=== PATIENT | male | born 1995 | race Caucasian/White ===

== ENCOUNTER 2016-12-03 12:46 | Emergency (ER) | payer SELFPAY ==
[~2016-12-03] VITALS: Ht 172.7 cm; Wt 61.2 kg
--- NOTE | 2016-12-03 16:03 | ED EENT ---
History of Present Illness General Chief Complaint: Dental Problems/Pain Stated Complaint: LOWER JAW, LEFT SIDE TOOTH PAIN Nursing Triage Note: R JAW/DENTAL PAIN X3 WEEKS. WAS SEEN IN [place] [facility] AND RECEIVED AMOXICILLIN AND OXYCODONE. Source: patient Exam Limitations: no limitations (NOEMY GOMEZ) History of Present Illness Time seen by provider: 16:03 Initial Comments patient seen, evaluated, and patient care provided by Jama Moore APRN. (NOEMY GOMEZ) Time seen by provider: 16:10 Initial Comments Dental Pain, left lower molars. Severity: moderate Location: dental Prearrival Treatment: prescription meds (Amoxicillin and Oxycodone) Associated Symptoms: denies symptoms (JAMA MOORE) Allergies and Home Medications Allergies Coded Allergies: No Known Drug Allergies (Unverified , 12/03/16) Home Medications Cephalexin 500 Mg Capsule #28 500 MG PO QID Prescribed by: JAMA MOORE on 12/03/16 1628 Review of Systems Constitutional: no symptoms reported see HPI Eyes: No Symptoms Reported See HPI Ears: No Symptoms Reported See HPI Nose: no symptoms reported see HPI Mouth: see HPI pain (left lower jaw) Throat: no symptoms reported see HPI Respiratory: no symptoms reported see HPI Cardiovascular: no symptoms reported see HPI Gastrointestinal: no symptoms reported see HPI Musculoskeletal: no symptoms reported see HPI Skin: no symptoms reported see HPI Neurological: No Symptoms Reported See HPI Hematologic/Lymphatic: No Symptoms Reported See HPI Immunological/Allergic: no symptoms reported see HPI (JAMA MOORE) All Other Systems Reviewed Negative Unless Noted: Yes (JAMA MOORE) Past Okzgwtn-Fdbmia-Bzfcjt Hx Patient Social History Alcohol Use: Regular Use Recreational Drug Use: No Smoking Status: Current Everyday Smoker Type Used: Cigarettes Recent Foreign Travel: No Contact w/Someone Who Travel: No Recent Infectious Disease Expo: No Recent Hopitalizations: No Physical Abuse Screen: No Sexual Abuse: No (NOEMY GOMEZ) Surgeries HX Surgeries: Yes (TUBES IN EARS) (NOEMY GOMEZ) Respiratory Hx Respiratory Disorders: Yes Respiratory Disorders: Asthma (NOEMY GOMEZ) Cardiovascular Hx Cardiac Disorders: No (NOEMY GOMEZ) Neurological Hx Neurological Disorders: No (NOEMY GOMEZ) Genitourinary Hx Genitourinary Disorders: No (NOEMY GOMEZ) Gastrointestinal Hx Gastrointestinal Disorders: No (NOEMY GOMEZ) Musculoskeletal Hx Musculoskeletal Disorders: No (NOEMY GOMEZ) Endocrine Hx Endocrine Disorders: No (NOEMY GOMEZ) Psychosocial Hx Psychiatric Problems: Yes (AUSTISTIC) (NOEMY GOMEZ) Reviewed Nursing Assessment Reviewed/Agree w Nursing PMH: Yes (JAMA MOORE) Physical Exam Vital Signs Vital Sign - Last 12Hours 12/03/16 14:06 Temp 100.0 Pulse 122 Resp 16 B/P 134/88 Pulse Ox 99 (JAMA MOORE) General Appearance: WD/WN no apparent distress Eyes: bilateral eye EOMI, bilateral eye PERRL, bilateral eye normal inspection Ears: bilateral ear TM normal, bilateral ear auricle normal, bilateral ear canal normal Nose: normal inspectionNo active bleeding, No discharge, No sinus tenderness Mouth/Throat: pharynx normal dental tenderness mandibular swelling (left)No pharynx swelling, No pharynx tenderness, No tongue swollen, other (marketed gingivitis, dental caries, closed fracture tooth #17) Neck: non-tender full range of motion supple normal inspectionNo lymphadenopathy (R), lymphadenopathy (L) Cardiovascular: normal peripheral pulses regular rate, rhythm no edema no murmur Respiratory: chest non-tender lungs clear normal breath sounds no respiratory distress no accessory muscle use Neurologic/Psychiatric: no motor/sensory deficits alert normal mood/affect oriented x 3 Skin: normal color warm/dry (JAMA MOORE) Progress/Results/Core Measures Results/Orders My Orders Orders-JAMA MOORE Hydrocodone/Apap 10/325 Tablet (Lortab 1 (12/03/16 16:23) Cephalexin Capsule (Keflex Capsule) (12/03/16 16:23) (JAMA MOORE) Vital Signs/I&O Vital Sign - Last 12Hours 12/03/16 12/03/16 14:06 16:30 Temp 100.0 99.6 Pulse 122 122 Resp 16 16 B/P 134/88 Pulse Ox 99 99 (JAMA MOORE) Blood Pressure Mean: 103 Departure Impression Impression: Primary Impression: Pain, dental Additional Impression: Fractured tooth Qualified Code: S02.5XXA - Fracture of tooth (traumatic), initial encounter for closed fracture Disposition: 01 HOME, SELF-CARE Condition: Stable Departure-Patient Inst. Decision time for Depature: 16:20 (JAMA MOORE) Referrals: NO,LOCAL PHYSICIAN (PCP/Family) Primary Care Physician Patient Instructions: Fractured Tooth (DC), Dental Pain (DC) Add. Discharge Instructions: All discharge instructions reviewed with patient and/or family. Voiced understanding. Warm moist compresses to left cheek. Tylenol 650 mg every 6 hours and Ibuprofen 800 mg every 8 hours. Establish care at [facility], for prescription assistance and referral to dental clinic. Scripts Cephalexin (Keflex)500 Mg [id number] Mg PO QID #28 CAP Ref 0 Prov:JAMA MOORE 12/03/16 Work/School Note: [employer] NOEMY GOMEZ Dec 03, 2016 16:03 JAMA MOORE Dec 03, 2016 16:29
[2016-12-03] MEDS ORDERED: CEPHALEXIN 250 MG (KEFLEX) CAP PO STA (16:23)
[2016-12-03] MEDS ORDERED: HYDROcodone/APAP 10 MG/325 MG (LORTAB) TAB PO STA (16:23)
[2016-12-03] MEDS ORDERED: CEPH-507 PO (16:28)
[2016-12-03 16:30] VITALS: BP 134/88
== END 2016-12-03 16:30 | disposition home or self-care (01) ==
LOC: ER 12:49
DX: S02.5XXA Fracture of tooth (traumatic), initial encounter for closed fracture (principal); K02.9 Dental caries, unspecified; F17.210 Nicotine dependence, cigarettes, uncomplicated; X58.XXXA Exposure to other specified factors, initial encounter; Y99.8 Other external cause status
CPT/HCPCS: 99283

== ENCOUNTER 2017-05-08 12:06 | Emergency (ER) | payer SELFPAY ==
[~2017-05-08] VITALS: Ht 172.7 cm; Wt 65.8 kg
[~2017-05-08 12:06] MED LIST: CEPH-507 PO
--- NOTE | 2017-05-08 12:14 | ED EENT ---
History of Present Illness General Stated Complaint: TOOTH PAIN Source: patient Exam Limitations: no limitations History of Present Illness Time seen by provider: 12:12 Initial Comments To ER with right lower molar pain for 2 days. States he was eating when it broke off. States he cannot see a dentist because no one will allow financial assistance. Timing/Duration: abrupt Severity: moderate Location: mouth Associated Symptoms: denies symptoms Allergies and Home Medications Allergies Coded Allergies: No Known Drug Allergies (Unverified , 12/03/16) Home Medications Cephalexin 500 Mg Capsule, 500 MG PO QID, #28 Ref 0 Prescribed by: JAMA COMER on 12/03/16 1628 Review of Systems Constitutional: see HPI Eyes: No Symptoms Reported Ears: No Symptoms Reported Nose: no symptoms reported Mouth: see HPI Throat: no symptoms reported Respiratory: no symptoms reported Cardiovascular: no symptoms reported Musculoskeletal: no symptoms reported Past Xbnoroo-Octori-Gdoedd Hx Patient Social History Type Used: Cigarettes Recent Foreign Travel: No Contact w/Someone Who Travel: No Recent Hopitalizations: No Surgeries HX Surgeries: Yes (TUBES IN EARS) Respiratory Hx Respiratory Disorders: Yes Respiratory Disorders: Asthma Cardiovascular Hx Cardiac Disorders: No Neurological Hx Neurological Disorders: No Genitourinary Hx Genitourinary Disorders: No Gastrointestinal Hx Gastrointestinal Disorders: No Musculoskeletal Hx Musculoskeletal Disorders: No Endocrine Hx Endocrine Disorders: No Psychosocial Hx Psychiatric Problems: Yes (AUSTISTIC) Physical Exam General Appearance: WD/WN, no apparent distress Eyes: bilateral eye EOMI, bilateral eye PERRL, bilateral eye normal inspection Ears: bilateral ear TM normal, bilateral ear auricle normal, bilateral ear canal normal Mouth/Throat: other (multiple fractured eroded and carious teeth. No buccal or lingual fluctuance to suggest abcess. ) Neck: non-tender, full range of motion, No lymphadenopathy (R), No lymphadenopathy (L) Respiratory: normal breath sounds, no respiratory distress, no accessory muscle use Gastrointestinal: non tender, soft Neurologic/Psychiatric: alert, normal mood/affect, oriented x 3 Skin: normal color Departure Communication Progress Notes I did call [facility] and make an appointment for the patient May 22 at 10 a.m. Impression Impression: Primary Impression: Pain, dental Disposition: 01 HOME, SELF-CARE Condition: Stable Departure-Patient Inst. Decision time for Depature: 12:14 Referrals: NO,LOCAL PHYSICIAN (PCP/Family) Primary Care Physician Patient Instructions: Dental Pain (DC) Add. Discharge Instructions: 1. I have made an appointment for you at the [facility] on and [address] on May 22 at 10 a.m. 2. Medication as directed Scripts Tramadol HCl (Ultram) 50 Mg Tablet 50 MG PO Q6H Y for PAIN-MODERATE TO SEVERE, #10 TAB Do not fill unless amoxicillin is also filled Prov: HARI DIXON APRN 05/08/17 Chlorhexidine Gluconate (Peridex) 473 Ml Mouthwash 30 ML MM BID, #473 ML Prov: HARI DIXON APRN 05/08/17 Amoxicillin (Amoxicillin) 500 Mg Capsule 500 MG PO TID, #21 CAP Prov: HARI DIXON APRN 05/08/17 Images Mouth/Nose 1 - Caries, Fracture Tooth, Tenderness HARI DIXON APRN May 08, 2017 12:14
[2017-05-08] MEDS ORDERED: CHLO473M4 MM (12:19)
[2017-05-08] MEDS ORDERED: AMOX500C2 PO (12:19)
[2017-05-08] MEDS ORDERED: TRAM-42 PO (12:19)
[2017-05-08 12:28] VITALS: BP 135/77
== END 2017-05-08 12:27 | disposition home or self-care (01) ==
LOC: EDUNIT# 12:06 → ER 12:08
DX: K08.89 Other specified disorders of teeth and supporting structures (principal)
CPT/HCPCS: 99282

== ENCOUNTER 2017-07-04 11:59 | Emergency (ER) | payer OTHER ==
[~2017-07-04] VITALS: Ht 170.2 cm; Wt 65.8 kg
[~2017-07-04 11:59] MED LIST changes: +AMOX500C2 PO; +CHLO473M4 MM; +TRAM-42 PO
[2017-07-04] MEDS ORDERED: ONDA4TAB8 SL (12:35)
[2017-07-04] MEDS ORDERED: AMOX500T2 PO (12:35)
--- NOTE | 2017-07-04 12:40 | ED GI ---
General Chief Complaint: Abdominal/GI Problems Stated Complaint: VOMITING/NAUSEA Nursing Triage Note: PT STATES HAS VOMITED X3 THIS AM, HAS EATEN EGGS AND TOAST AND HAS BEEN ABLE TO KEEP DOWN, HAS DISCOMFORT FROM VOMITING Sepsis Screen: No Definite Risk Source of Information: Patient Exam Limitations: No Limitations History of Present Illness Time Seen By Provider: 12:20 Initial Comments This 21-year-old young man presents to the emergency room with complaints of vomiting 3 today. Symptoms started at 07:00. He denies fever, diarrhea, constipation, or urinary changes. He has abdominal pain only after vomiting. He denies any drug or alcohol use. He has been able to eat and drink since the vomiting stopped. He also complains of a lump under his left chin. It is been there for a few years and it's size changes. It has recently enlarged. It has the appearance of a lymph node. He has significant dental disease and dental pain. Allergies and Home Medications Allergies Coded Allergies: No Known Drug Allergies (Unverified , 12/03/16) Home Medications Amoxicillin 500 Mg Tablet, 1,000 MG PO BID, #40 Prescribed by: ARVIN GAVIN on 07/04/17 1235 Ondansetron 4 Mg Tab.rapdis, 4 MG SL Q4H PRN for NAUSEA/VOMITING-1ST LINE, #10 Prescribed by: ARVIN GAVIN on 07/04/17 1235 Review of Systems Constitutional: no symptoms reported EENTM: See HPI Respiratory: No Symptoms Reported Cardiovascular: No Symptoms Reported Gastrointestinal: See HPI Genitourinary: No Symptoms Reported Musculoskeletal: no symptoms reported Skin: no symptoms reported Psychiatric/Neurological: No Symptoms Reported Endocrine: No Symptoms Reported Hematologic/Lymphatic: See HPI Past Kgwzxis-Ihddhg-Fgiwaw Hx Patient Social History Type Used: Cigarettes Recent Foreign Travel: No Contact w/Someone Who Travel: No Recent Infectious Disease Expo: No Recent Hopitalizations: No Surgeries HX Surgeries: Yes (TUBES IN EARS) Surgeries: Ear Surgery Respiratory Hx Respiratory Disorders: Yes Respiratory Disorders: Asthma Cardiovascular Hx Cardiac Disorders: No Neurological Hx Neurological Disorders: No Reproductive System Hx Reproductive Disorders: No Genitourinary Hx Genitourinary Disorders: No Gastrointestinal Hx Gastrointestinal Disorders: No Musculoskeletal Hx Musculoskeletal Disorders: No Endocrine Hx Endocrine Disorders: No HEENT HX ENT Disorders: Yes (Severe dental disease) Cancer Hx Cancer: No Psychosocial Hx Psychiatric Problems: Yes (AUSTISTIC) Integumentary HX Skin/Integumentary Disorder: No Physical Exam Vital Signs VS - Last 72 Hours, by Label 07/04/17 07/04/17 12:05 12:48 Temp 97.7 97.7 Pulse 60 60 Resp 18 18 B/P (MAP) 119/71 Pulse Ox 98 98 Capillary Refill : Less Than 3 Seconds General Appearance: WD/WN, no apparent distress HEENT: PERRL/EOMI, TMs normal, other (Severe dental decay and gingival inflammation) Neck: non-tender, supple, other (There is a 10-15 mm semi-mobile lump beneath the left mandible toward the larynx) Gastrointestinal: normal bowel sounds, non tender, soft Extremities: non-tender, normal inspection, no pedal edema Neurologic/Psychiatric: loss prevention supervisor II-XII nml as tested, no motor/sensory deficits, alert, normal mood/affect, oriented x 3 Skin: normal color, warm/dry Progress/Results/Core Measures Results/Orders Vital Signs/I&O Vital Sign - Last 12Hours 07/04/17 07/04/17 12:05 12:48 Temp 97.7 97.7 Pulse 60 60 Resp 18 18 B/P (MAP) 119/71 Pulse Ox 98 98 Blood Pressure Mean: 87 Progress Note : Progress Note Patient's nausea and vomiting had resolved by the time of his visit. He no longer had abdominal pain. Zofran was prescribed for use at home. Patient has a semi-mobile nodule about a centimeter in diameter on the left anterior neck below the chin. This mass may represent an inflamed lymph node due to dental and periodontal disease. However, he reports that it has grown in size over the past few years. He was advised to have this followed by a primary care provider as it may need to be removed and could represent neoplastic disease. I placed him on amoxicillin with the thought that this mass could be lymphadenopathy due to periodontal disease. He was advised to follow-up with a dentist and a primary care provider soon as possible. Departure Impression Impression: Primary Impression: Nausea and vomiting Qualified Codes: R11.2 - Nausea with vomiting, unspecified Additional Impressions: Lump on neck Dental caries Pain, dental Disposition: 01 HOME, SELF-CARE Condition: Improved Departure-Patient Inst. Decision time for Depature: 12:34 Referrals: NO,LOCAL PHYSICIAN (PCP/Family) Primary Care Physician Add. Discharge Instructions: Use the Zofran (ondansetron) dissolved under the tongue every 4 hours as needed for nausea and vomiting. Drink plenty of clear liquids and gradually advance her diet with small quantities of bland food as tolerated. It is essential that you address your severe dental disease with a dentist. Please schedule an appointment as soon as possible. [place] your teeth gently twice daily with a soft bristled toothbrush and rinse with a antiseptic mouth wash as tolerated. Complete your antibiotic as prescribed. Please see primary care provider as soon as possible to monitor the lump on your neck. It may be something as harmless as an inflamed lymph node but could be something more concerning such as cancer. Return to the ER if you have worsening symptoms. All discharge instructions reviewed with patient and/or family. Voiced understanding. Scripts Amoxicillin (Amoxicillin) 500 Mg Tablet 1000 MG PO BID, #40 TAB Prov: ARVIN ULLOA MD 07/04/17 Ondansetron (Zofran Odt) 4 Mg Tab.rapdis 4 MG SL Q4H Y for NAUSEA/VOMITING-1ST LINE, #10 TAB Prov: ARVIN ULLOA MD 07/04/17 Work/School Note: Work Release Form Date Seen in the Emergency Department: Jul 04, 2017 Return to Work: Jul 05, 2017 Restrictions: No Restrictions Copy Copies To 1: EV MCHUGH MD, JOSHUA T MD Jul 04, 2017 12:40
[2017-07-04 12:48] VITALS: BP 119/71
== END 2017-07-04 12:48 | disposition home or self-care (01) ==
LOC: EDUNIT# 11:59 → ER 12:01
DX: R11.2 Nausea with vomiting, unspecified (principal); R22.1 Localized swelling, mass and lump, neck; K08.9 Disorder of teeth and supporting structures, unspecified; K02.9 Dental caries, unspecified
CPT/HCPCS: 99282

== ENCOUNTER 2017-07-20 21:02 | Emergency (ER) | payer SELFPAY ==
[~2017-07-20] VITALS: Ht 170.2 cm; Wt 61.7 kg
[~2017-07-20 21:02] MED LIST changes: +AMOX500T2 PO; +ONDA4TAB8 SL
[2017-07-20 23:13] LABS: BILIRUBIN,URINE NEGATIVE (NEGATIVE); KETONES,URINE 1+ (NEGATIVE); LEUKOCYTE ESTERASE ,URINE 3+ (NEGATIVE); NITRITE,URINE NEGATIVE (NEGATIVE); PH,URINE 7 (5-9); PROTEIN,URINE 1+ (NEGATIVE); UROBILINOGEN,URINE NORMAL (NORMAL)
[2017-07-20 23:20] LABS: WBC,URINE TNTC /HPF
[2017-07-21] MEDS ORDERED: CEPH-507 PO (00:25)
--- NOTE | 2017-07-21 00:26 | ED GU-Male ---
General Chief Complaint: -Male Stated Complaint: TROUBLE URINATING Nursing Triage Note: PT REPORTS PAINFUL URINATION FOR 2 DAYS. HE DENIES HEMATURIA OR FREQUENCY. Source: patient Exam Limitations: no limitations Allergies and Home Medications Allergies Coded Allergies: No Known Drug Allergies (Unverified , 12/03/16) Home Medications Amoxicillin 500 Mg Tablet, 1,000 MG PO BID, #40 Prescribed by: ARVIN GAVIN on 07/04/17 1235 Ondansetron 4 Mg Tab.rapdis, 4 MG SL Q4H PRN for NAUSEA/VOMITING-1ST LINE, #10 Prescribed by: ARVIN GAVIN on 07/04/17 1235 Past Itfdxsp-Fxqilh-Hlravi Hx Patient Social History Alcohol Use: Occasionally Uses Recreational Drug Use: No Smoking Status: Current Everyday Smoker Type Used: Cigarettes 2nd Hand Smoke Exposure: Yes Recent Foreign Travel: No Contact w/Someone Who Travel: No Recent Infectious Disease Expo: No Recent Hopitalizations: No Surgeries HX Surgeries: Yes (TUBES IN EARS) Surgeries: Ear Surgery Respiratory Hx Respiratory Disorders: Yes Respiratory Disorders: Asthma Cardiovascular Hx Cardiac Disorders: No Neurological Hx Neurological Disorders: No Reproductive System Hx Reproductive Disorders: No Genitourinary Hx Genitourinary Disorders: No Gastrointestinal Hx Gastrointestinal Disorders: No Musculoskeletal Hx Musculoskeletal Disorders: No Endocrine Hx Endocrine Disorders: No HEENT HX ENT Disorders: Yes (Severe dental disease) Cancer Hx Cancer: No Psychosocial Hx Psychiatric Problems: Yes (AUSTISTIC) Integumentary HX Skin/Integumentary Disorder: No Physical Exam Vital Signs Vital Sign - Last 12Hours 07/20/17 22:02 Temp 98.1 Pulse 75 Resp 16 B/P (MAP) 118/76 Pulse Ox 98 O2 Delivery Room Air Capillary Refill : Less Than 3 Seconds Progress/Results/Core Measures Results/Orders Lab Results Laboratory Tests Test 07/20/17 22:55 Range/Units Urine Color YELLOW Urine Clarity VERY CLOUDY H Urine pH 7 5-9 Urine Specific [place] 1.010 L 1.016-1.022 Urine Protein 1+ H NEGATIVE Urine Glucose (UA) NEGATIVE NEGATIVE Urine Ketones 1+ H NEGATIVE Urine Nitrite NEGATIVE NEGATIVE Urine Bilirubin NEGATIVE NEGATIVE Urine Urobilinogen NORMAL NORMAL MG/DL Urine Leukocyte Esterase 3+ H NEGATIVE Urine RBC (Auto) 1+ H NEGATIVE Urine RBC NONE /HPF Urine WBC TNTC H /HPF Urine Crystals NONE /LPF Urine Bacteria FEW H /HPF Urine Casts NONE /LPF Urine Mucus MODERATE H /LPF Urine Culture Indicated YES My Orders Orders - ARVIN ULLOA MD Ua Culture If Indicated (07/20/17 21:09) Bladder Scan (07/20/17 21:09) Urine Culture (07/20/17 22:55) Chlamydia Dna Urine Test (07/21/17 00:19) Neis Jose Guadlaupe Dna Urine Test (07/21/17 00:19) Rocephin 1000mg Im (07/21/17 00:30) Lidocaine 1% Injection (Xylocaine 1% Inj (07/21/17 00:30) Azithromycin Tablet (Zithromax Tablet) (07/21/17 00:30) Vital Signs/I&O Vital Sign - Last 12Hours 07/20/17 22:02 Temp 98.1 Pulse 75 Resp 16 B/P (MAP) 118/76 Pulse Ox 98 O2 Delivery Room Air Blood Pressure Mean: 90 Departure Impression Impression: Primary Impression: Urinary tract infection Qualified Codes: N39.0 - Urinary tract infection, site not specified; R31.9 - Hematuria, unspecified Additional Impression: Drainage from penis Disposition: HOME, SELF-CARE Condition: Improved Departure-Patient Inst. Decision time for Depature: 00:16 Referrals: NO,LOCAL PHYSICIAN (PCP/Family) Primary Care Physician Patient Instructions: Screening for Sexually Transmitted Infections, Urinary Tract Infections in Adults Add. Discharge Instructions: Drink lots of clear liquids to encourage frequent urination. Complete your antibiotic as prescribed. Follow-up with your primary care provider to review culture results next week. No sexual intercourse until cleared by your doctor. Return to care if symptoms worsen. All discharge instructions reviewed with patient and/or family. Voiced understanding. Scripts Cephalexin (Keflex) 500 Mg Capsule 500 MG PO QID, #28 CAP Prov: ARVIN ULLOA MD 07/21/17 ARVIN ULLOA MD Jul 21, 2017 00:26
[2017-07-21] MEDS ORDERED: cefTRIAXone 1 GM (ROCEPHIN) VIAL IM ONE (00:30)
[2017-07-21] MEDS ORDERED: AZITHROMYCIN 250 MG TAB (ZITHROMAX) PO ONE (00:30)
[2017-07-21] MEDS ORDERED: LIDOCAINE 1% INJ 20 ML (XYLOCAINE) VIAL INJ ONE (00:30)
[2017-07-21 00:35] VITALS: BP 118/76
[2017-07-22 15:42] LABS: CHLAMYDIA DNA URINE Not Detected (Not Detected)
[2017-07-22 15:43] LABS: NEISSERIA GONORRHEA DNA URINE Detected (Not Detected)
== END 2017-07-21 00:35 | disposition home or self-care (01) ==
LOC: EDUNIT# 21:02 → ER 21:04
DX: N39.0 Urinary tract infection, site not specified (principal); R36.9 Urethral discharge, unspecified; J45.909 Unspecified asthma, uncomplicated; F17.210 Nicotine dependence, cigarettes, uncomplicated
CPT/HCPCS: 36415; 81000; 87088; 87491; 87591; 96372; 99284

== ENCOUNTER 2017-08-08 02:40 | Emergency (ER) | payer OTHER ==
[~2017-08-08] VITALS: Ht 170.2 cm; Wt 65.8 kg
[2017-08-08] MEDS ORDERED: DEXAMETHASONE PF 10 MG/ML (DECADRON) VIAL IM STA (02:51)
[2017-08-08] MEDS ORDERED: ACETAMINOPHEN 500 MG TAB (TYLENOL) PO STA (02:51)
[2017-08-08] MEDS ORDERED: DEXAMETHASONE 10 MG/ML (DECADRON) 1 ML VIAL IV ONE (03:00)
[2017-08-08] MEDS ORDERED: DEXAMETHASONE 10 MG/ML (DECADRON) 1 ML VIAL IM ONE (03:15)
--- NOTE | 2017-08-08 03:15 | ED EENT ---
History of Present Illness General Chief Complaint: Oral/Throat Problems Stated Complaint: FEVER 101.,SORE THROAT Nursing Triage Note: FEVER, SORE THROAT Source: patient Exam Limitations: no limitations History of Present Illness Time seen by provider: 02:48 Initial Comments Here with report of fever and sore throat. Woke up with a fever of 101.8 Fahrenheit tonight and sore throat. Moderate runny nose with postnasal drip and mild cough noted. Reports swollen lymph nodes. Denies breathing problems or vomiting. Timing/Duration: gradual Severity: moderate Location: throat Prearrival Treatment: over the counter meds Associated Symptoms: cough, fever, nasal congestion/drainage, sore throat Allergies and Home Medications Allergies Coded Allergies: No Known Drug Allergies (Unverified , 12/03/16) Home Medications No Active Prescriptions or Reported Meds Review of Systems Constitutional: see HPI, No chills, fever Eyes: No Symptoms Reported Ears: No Symptoms Reported Nose: see HPI, congestion, clear discharge Throat: see HPI, pain, denies neck stiffness, denies hoarse, denies aphonia, denies muffled Respiratory: see HPI, cough, No short of breath Cardiovascular: no symptoms reported Gastrointestinal: No abdominal pain, No nausea, No vomiting Skin: no symptoms reported Past Ritsrqx-Soamgh-Injjlx Hx Patient Social History Alcohol Use: Denies Use Number of Drinks Today: CC Alcohol Beverage of Choice: Cheap Liquor Recreational Drug Use: No Smoking Status: Current Everyday Smoker Type Used: Cigarettes 2nd Hand Smoke Exposure: Yes Recent Foreign Travel: No Contact w/Someone Who Travel: No Recent Infectious Disease Expo: No Recent Hopitalizations: No Immunizations Up To Date Tetanus Booster (TDap): Unknown Seasonal Allergies Seasonal Allergies: Yes Surgeries History of Surgeries: Yes (TUBES IN EARS) Surgeries: Ear Surgery Respiratory History of Respiratory Disorde: Yes Respiratory Disorders: Asthma Cardiovascular History of Cardiac Disorders: No Neurological History of Neurological Disord: No Reproductive System Hx Reproductive Disorders: No Genitourinary History of Genitourinary Disor: No Gastrointestinal History of Gastrointestinal Di: No Musculoskeletal History of Musculoskeletal Dis: No Endocrine History of Endocrine Disorders: No HEENT History of HEENT Disorders: No Cancer History of Cancer: No Psychosocial History of Psychiatric Problem: Yes (AUSTISTIC) Integumentary History of Skin or Integumenta: No Blood Transfusions History of Blood Disorders: No Reviewed Nursing Assessment Reviewed/Agree w Nursing PMH: Yes Physical Exam Vital Signs Vital Sign - Last 12Hours 08/08/17 02:53 Temp 100.6 Pulse 99 Resp 18 B/P (MAP) 111/67 Pulse Ox 98 O2 Delivery Room Air General Appearance: WD/WN, no apparent distress Ears: bilateral ear auricle normal, bilateral ear canal normal, bilateral ear TM normal Nose: other (moderate bilateral rhinorrhea with moderate nasal congestion and erythema) Mouth/Throat: pharynx swelling, pharynx tenderness, No tongue swollen, No tonsillar exudate, No trismus, uvula swelling, No voice changes Neck: full range of motion, supple, lymphadenopathy (R), lymphadenopathy (L) Cardiovascular: no murmur, tachycardia Respiratory: lungs clear, normal breath sounds Gastrointestinal: non tender, soft Neurologic/Psychiatric: alert, oriented x 3 Skin: normal color, warm/dry Progress/Results/Core Measures Results/Orders Lab Results Laboratory Tests Test 08/08/17 02:50 Range/Units Group A Streptococcus Screen NEGATIVE NEGATIVE My Orders Orders - CALVIN MCKEON MD Rapid Strep A Screen (08/08/17 02:51) Acetaminophen Tablet (Tylenol Tablet) (08/08/17 02:51) Dexamethasone Pf Injection (Decadron Pf (08/08/17 02:51) Dexamethasone Injection (Decadron Inject (08/08/17 03:00) Dexamethasone Injection (Decadron Inject (08/08/17 03:15) Vital Signs/I&O Vital Sign - Last 12Hours 08/08/17 02:53 Temp 100.6 Pulse 99 Resp 18 B/P (MAP) 111/67 Pulse Ox 98 O2 Delivery Room Air Blood Pressure Mean: 82 Progress Note : Progress Note Seen and evaluated. Tylenol 1 g by mouth. Decadron 10 mg IM in rapid strep performed. Strep is negative. Likely pharyngitis with uvulitis. Supportive care indicated. Discharged home with return precautions. Patient verbalize understanding instructions and agreement with plan. Departure Impression Impression: Primary Impression: Pharyngitis Qualified Codes: J02.9 - Acute pharyngitis, unspecified Additional Impressions: Uvulitis Fever Qualified Codes: R50.9 - Fever, unspecified Disposition: 01 HOME, SELF-CARE Condition: Improved Departure-Patient Inst. Decision time for Depature: 03:14 Referrals: NO,LOCAL PHYSICIAN (PCP/Family) Primary Care Physician Patient Instructions: Viral Pharyngitis (DC) Add. Discharge Instructions: All discharge instructions reviewed with patient and/or family. Voiced understanding. You may take ibuprofen 800 mg every 8 hours as needed for pain. You may take Tylenol 1000 mg every 8 hours as needed for pain. Drink plenty of fluids. You may use Benadryl 25 mg every 6 hours as needed for nasal congestion and runny nose. Return for worse pain, fever, vomiting, weakness, breathing problems or other concerns as needed. Scripts No Active Prescriptions or Reported Meds CALVIN MCKEON MD Aug 08, 2017 03:15
[2017-08-08 03:17] VITALS: BP 111/67
== END 2017-08-08 03:17 | disposition home or self-care (01) ==
LOC: EDUNIT# 02:40 → ER 02:44
DX: J02.9 Acute pharyngitis, unspecified (principal); K12.2 Cellulitis and abscess of mouth; J45.909 Unspecified asthma, uncomplicated; F17.210 Nicotine dependence, cigarettes, uncomplicated; Z96.22 Myringotomy tube(s) status
CPT/HCPCS: 87430; 96372; 99284

== ENCOUNTER 2017-08-31 13:24 | Emergency (ER) | payer SELFPAY ==
[~2017-08-31] VITALS: Ht 170.2 cm; Wt 65.8 kg
[2017-08-31 14:11] VITALS: BP 126/74
--- NOTE | 2017-08-31 14:11 | ED Cough/URI ---
General Chief Complaint: Cough/Cold/Flu Symptoms Stated Complaint: COUGHING History of Present Illness Time seen by provider: 13:55 Initial Comments Patient reports clear productive cough for the last week. He was evaluated here approximately 2 weeks ago for viral pharyngitis and started on Benadryl. He reports stopping it several days ago because he ran out. He has a previous history of asthma as a child has not used an inhaler or nebulizer in several years. He is a smoker, Approximately one pack a day. He denies any fevers, weight loss, or other concerns. He is requesting a note for work to be excused. Timing/Duration: intermittent Severity/Quality: mild, productive cough (clear sputum), sputum Prior Episodes/Possible Cause: frequent episodes Modifying Factors: Improves With Rest Associated Symptoms: denies symptoms Allergies and Home Medications Allergies Coded Allergies: No Known Drug Allergies (Unverified , 12/03/16) Home Medications No Active Prescriptions or Reported Meds Constitutional: no symptoms reported, see HPI Respiratory: see HPI, cough All Other Systems Reviewed Negative Unless Noted: Yes Past Nmkavzc-Adaeep-Wrpbzh Hx Patient Social History Alcohol Beverage of Choice: Cheap Liquor Smoking Status: Current Everyday Smoker Type Used: Cigarettes (1 pack per day) 2nd Hand Smoke Exposure: Yes Recent Foreign Travel: No Contact w/Someone Who Travel: No Recent Hopitalizations: No Immunizations Up To Date Tetanus Booster (TDap): Unknown Seasonal Allergies Seasonal Allergies: Yes Surgeries History of Surgeries: Yes (TUBES IN EARS) Surgeries: Ear Surgery Respiratory History of Respiratory Disorde: Yes Respiratory Disorders: Asthma Cardiovascular History of Cardiac Disorders: No Neurological History of Neurological Disord: No Reproductive System Hx Reproductive Disorders: No Genitourinary History of Genitourinary Disor: No Gastrointestinal History of Gastrointestinal Di: No Musculoskeletal History of Musculoskeletal Dis: No Endocrine History of Endocrine Disorders: No HEENT History of HEENT Disorders: No Cancer History of Cancer: No Psychosocial History of Psychiatric Problem: Yes (AUSTISTIC) Integumentary History of Skin or Integumenta: No Blood Transfusions History of Blood Disorders: No Reviewed Nursing Assessment Reviewed/Agree w Nursing PMH: Yes Physical Exam Vital Signs Capillary Refill : General Appearance: WD/WN, no apparent distress Eyes: Bilateral Eye Normal Inspection, Bilateral Eye PERRL, Bilateral Eye EOMI HEENT: PERRL/EOMI, normal ENT inspection, TMs normal, pharynx normal, other ( clear postnasal drainage noted. No frontal or maxillary sinus tenderness to palpation.) Neck: non-tender, full range of motion, supple, normal inspection, No lymphadenopathy (R), No lymphadenopathy (L) Respiratory: chest non-tender, lungs clear, normal breath sounds Cardiovascular: normal peripheral pulses, regular rate, rhythm, no murmur Gastrointestinal: normal bowel sounds, non tender, soft Neurologic/Psychiatric: no motor/sensory deficits, alert, normal mood/affect, oriented x 3 Skin: normal color, warm/dry Lymphatic: no adenopathy Progress/Results/Core Measures Results/Orders Lab Results Laboratory Tests Test 08/31/17 13:42 Range/Units Group A Streptococcus Screen NEGATIVE NEGATIVE My Orders Orders - JAMA COMER Rapid Strep A Screen (08/31/17 13:53) Departure Impression Impression: Primary Impression: Seasonal allergic rhinitis Qualified Codes: J30.2 - Other seasonal allergic rhinitis Additional Impression: Cough Disposition: 01 HOME, SELF-CARE Condition: Stable Departure-Patient Inst. Decision time for Depature: 14:00 Referrals: NO,LOCAL PHYSICIAN (PCP/Family) Primary Care Physician Patient Instructions: Seasonal Allergies (DC) Add. Discharge Instructions: Use [id number] allergy medicine, Zyrtec or Claritin. Benadryl 25 mg every 8 hours for additional allergy relief. Salt water gargles every 2 hours. Return to emergency department if difficulty breathing, fever greater than 101 , or new problems. All discharge instructions reviewed with patient and/or family. Voiced understanding. Scripts No Active Prescriptions or Reported Meds JAMA COMER Aug 31, 2017 14:11
== END 2017-08-31 14:11 | disposition home or self-care (01) ==
LOC: EDUNIT# 13:24 → ER 13:25
DX: J30.2 Other seasonal allergic rhinitis (principal); J45.909 Unspecified asthma, uncomplicated; F84.0 Autistic disorder; F17.210 Nicotine dependence, cigarettes, uncomplicated
CPT/HCPCS: 87430; 99282

== ENCOUNTER 2017-12-06 14:32 | Emergency (ER) | payer MEDICAID, OTHER ==
[~2017-12-06] VITALS: Ht 165.1 cm; Wt 61.2 kg
[2017-12-06] MEDS ORDERED: LIDOCAINE 2% 20 ML (XYLOCAINE) VIAL ONE (15:02)
[2017-12-06] MEDS ORDERED: ACHD5005 PO (15:14)
[2017-12-06] MEDS ORDERED: KETOROLAC 60 MG/2 ML VIAL IM ONE (15:15)
[2017-12-06] MEDS ORDERED: LIDOCAINE/EPI 2% 1:100,00 (XYLOCAINE) 20 ML VIAL INJ ONE (15:15)
--- NOTE | 2017-12-06 15:25 | ED EENT ---
History of Present Illness General Chief Complaint: Dental Problems/Pain Stated Complaint: DENTAL PAIN Nursing Triage Note: pt reports having 5 teeth pulled this am and an abcess at site. SO states that pt is unable to go to sleep or have pain relief despite pain meds and that when they called the to report increased pain, "feeling warm" and continuous bleeding, they report they stated he is being overdramatic. Source: patient Exam Limitations: no limitations History of Present Illness Time seen by provider: 15:16 Initial Comments Right lower dental pain and bleeding. had 5 teeth removed today in this location by [facility]. Pt took hydrocodone 5mg po at 2pm without relief. Timing/Duration: abrupt Severity: moderate Location: dental Associated Symptoms: facial pain/swelling Allergies and Home Medications Allergies Coded Allergies: No Known Drug Allergies (Unverified , 12/03/16) Home Medications Hydrocodone Bit/Acetaminophen 1 Tab Tab, 1 TAB PO Q4H, (Reported) Review of Systems Constitutional: see HPI Eyes: No Symptoms Reported Ears: No Symptoms Reported Nose: no symptoms reported Mouth: see HPI, pain Throat: no symptoms reported Respiratory: no symptoms reported Cardiovascular: no symptoms reported Skin: no symptoms reported Past Jfibbxd-Cgjyqi-Obfcjq Hx Patient Social History Alcohol Beverage of Choice: Cheap Liquor Type Used: Cigarettes 2nd Hand Smoke Exposure: No Recent Foreign Travel: No Contact w/Someone Who Travel: No Recent Infectious Disease Expo: No Recent Hopitalizations: No Immunizations Up To Date Tetanus Booster (TDap): Unknown Seasonal Allergies Seasonal Allergies: Yes Surgeries History of Surgeries: Yes (TUBES IN EARS) Surgeries: Ear Surgery Respiratory History of Respiratory Disorde: Yes Respiratory Disorders: Asthma Cardiovascular History of Cardiac Disorders: No Neurological History of Neurological Disord: No Reproductive System Hx Reproductive Disorders: No Genitourinary History of Genitourinary Disor: No Gastrointestinal History of Gastrointestinal Di: No Musculoskeletal History of Musculoskeletal Dis: No Endocrine History of Endocrine Disorders: No HEENT History of HEENT Disorders: No Cancer History of Cancer: No Psychosocial History of Psychiatric Problem: Yes (AUSTISTIC) Integumentary History of Skin or Integumenta: No Blood Transfusions History of Blood Disorders: No Physical Exam Vital Signs Vital Sign - Last 12Hours 12/06/17 14:53 Temp 98.3 Pulse 60 Resp 20 B/P (MAP) 135/92 (106) O2 Delivery Room Air General Appearance: WD/WN, no apparent distress Eyes: bilateral eye normal inspection, bilateral eye PERRL, bilateral eye EOMI Ears: bilateral ear auricle normal, bilateral ear canal normal, bilateral ear TM normal Nose: normal inspection, active bleeding Mouth/Throat: other (no active bleeding from gums. Clot fills each of the 5 dental sockets. minimal facial swelling. ) Neck: non-tender, full range of motion Neurologic/Psychiatric: alert, normal mood/affect, oriented x 3 Progress/Results/Core Measures Results/Orders My Orders Orders - HARI DIXON APRN Lidocaine/Epi 2% 1:100,000 (Xylocaine/Ep (12/06/17 15:15) Lidocaine 2% Injection 20 Ml (Xylocaine (12/06/17 15:02) Ketorolac Injection (Toradol Injection) (12/06/17 15:15) Vital Signs/I&O Vital Sign - Last 12Hours 12/06/17 14:53 Temp 98.3 Pulse 60 Resp 20 B/P (MAP) 135/92 (106) O2 Delivery Room Air Blood Pressure Mean: 106 Departure Communication (Admissions) Progress Notes right inferior alveolar nerve block done. pt reported immediate pain relief before I had even withdrawn the needle from gums. toradol IM given, advised pt to take another 1/2 tablet of his 5mg hydrocodone at this time. Will dc to home. Impression Impression: Primary Impression: Pain, dental Disposition: 01 HOME, SELF-CARE Condition: Improved Departure-Patient Inst. Decision time for Depature: 15:19 Referrals: NO,LOCAL PHYSICIAN (PCP/Family) Primary Care Physician Patient Instructions: Dental Pain (DC) Add. Discharge Instructions: 1. Add ibuprofen 800mg ever 6 hours to the hydrocodone for additional pain control. THis is less than $5 at [facility]. All discharge instructions reviewed with patient and/or family. Voiced understanding. HARI DIXON APRN Dec 06, 2017 15:24
[2017-12-06 15:37] VITALS: BP 135/92
== END 2017-12-06 15:37 | disposition home or self-care (01) ==
LOC: EDUNIT# 14:32 → ER 14:33
DX: K08.89 Other specified disorders of teeth and supporting structures (principal); J45.909 Unspecified asthma, uncomplicated; F84.0 Autistic disorder; Z96.22 Myringotomy tube(s) status
CPT/HCPCS: 99284

== ENCOUNTER 2017-12-09 17:39 | Emergency (ER) | payer MEDICAID ==
[~2017-12-09] VITALS: Ht 175.3 cm; Wt 59.0 kg
[~2017-12-09 17:39] MED LIST changes: +ACHD5005 PO
--- OUTSIDE RECORDS SUMMARY | 2017-12-09 17:46 | XMS REPORT ---
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 Unknown Non Drug Allergy Jan, Unknown SOCIAL HISTORY No smoking Hx information available PLAN OF CARE VITAL SIGNS MEDICATIONS No Known Medications RESULTS No Results PROCEDURES No Known procedures IMMUNIZATIONS No Known Immunizations
[2017-12-09] MEDS ORDERED: KETOROLAC 60 MG/2 ML VIAL IM STA (19:31)
[2017-12-09] MEDS ORDERED: LIDOCAINE 1% INJ 50 ML (XYLOCAINE) VIAL ONE (19:34)
[2017-12-09] MEDS ORDERED: MELO15TA14 PO (19:34)
[2017-12-09] MEDS ORDERED: CLIN300C11 PO (19:34)
[2017-12-09] MEDS ORDERED: LIDO15SO2 MM (19:34)
--- NOTE | 2017-12-09 19:35 | ED EENT ---
History of Present Illness General Chief Complaint: Dental Problems/Pain Stated Complaint: DENTAL PAIN Nursing Triage Note: pt reports he had 4 teeth extracted 4 days ago and is having pain. pt reports he was seen in ed 2 days ago and recieved an injection in his gum for pain and was told to take 2 pills of his pain medicaton instead of 1. pt reports he ran out of pain medicine. Source: patient (GIVES MUCH CONFLICTING INFORMATION) History of Present Illness Time seen by provider: 19:12 Initial Comments PT STATES HE HAD "7 TEETH" PULLED " 4 DAYS AGO" BY AN UNKNOWN DENTIST HERE IN [place] --PT STATES "JUST [place] [address] NEXT TO [facility]"--- PT TOLD NURSE HE HAD 4 TEETH REMOVED PT WAS SEEN HERE THE ER ON 12/06/16, WHICH HE STATES IS THE SAME DAY HE HAD THE TEETH PULLED, FOR PAIN WAS GIVEN RX FOR HYDROCODONE BY DENTIST, AND WAS ADVISED THAT HE COULD TAKE AN EXTRA HYDROCODONE THAT DAY. PT NOW STATES HE HAS RAN OUT OF HIS HYDROCODONE 2 DAYS AGO, AND HAS NOT TAKEN ANYTHING ELSE FOR PAIN C/O CONTINUED PAIN AT EXTRACTION SITES TO RIGHT LOWER POSTERIOR GUMS PT HAS NOT ATTEMPTED TO FOLLOW UP WITH HIS DENTIST AT ANY TIME SINCE EXTRACTION FOR THIS PROBLEM ( AND TODAY IS SATURDAY AND DENTIST'S OFFICE WAS OPEN ALL DAY TODAY) PT STATES HE WAS GIVEN RX FOR AMOXIL, BUT HAS NOT TAKEN ANY AT ALL. NO FEVER PT JUST MOVED HERE A YEAR AGO AND HAS HAD 7 VISITS TO ER IN THE LAST YEAR. Allergies and Home Medications Allergies Coded Allergies: No Known Drug Allergies (Unverified , 12/03/16) Home Medications Clindamycin HCl 300 Mg Capsule, 300 MG PO QID, #40 Prescribed by: JACY MELARA on 12/09/171933 Hydrocodone Bit/Acetaminophen 1 Tab Tab, 1 TAB PO Q4H, (Reported) Lidocaine HCl 15 Ml Solution, 15 ML MM Q 1-2 HOURS, #100 Prescribed by: JACY MELARA on 12/09/171933 Meloxicam 15 Mg Tablet, 15 MG PO DAILY, #10 Prescribed by: JACY MELARA on 12/09/171933 Review of Systems Constitutional: no symptoms reported Mouth: see HPI Neurological: No Symptoms Reported Past Uuavwsp-Wbxekt-Ohztgg Hx Patient Social History Alcohol Use: Regular Use Number of Drinks Today: CC Alcohol Beverage of Choice: Cheap Liquor Recreational Drug Use: No (DENIES) Smoking Status: Current Everyday Smoker (1 PPD) Type Used: Cigarettes 2nd Hand Smoke Exposure: No Recent Foreign Travel: No Contact w/Someone Who Travel: No Recent Infectious Disease Expo: No Recent Hopitalizations: No Physical Abuse: No Sexual Abuse: No Mistreated: No Fear: No Immunizations Up To Date Tetanus Booster (TDap): Unknown Seasonal Allergies Seasonal Allergies: Yes Surgeries History of Surgeries: Yes (TUBES IN EARS, DENTAL EXTRACTIONSl) Surgeries: Ear Surgery Respiratory History of Respiratory Disorde: Yes Respiratory Disorders: Asthma Cardiovascular History of Cardiac Disorders: No Neurological History of Neurological Disord: No Reproductive System Hx Reproductive Disorders: No Genitourinary History of Genitourinary Disor: No Gastrointestinal History of Gastrointestinal Di: No Musculoskeletal History of Musculoskeletal Dis: No Endocrine History of Endocrine Disorders: No HEENT History of HEENT Disorders: No Cancer History of Cancer: No Psychosocial History 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) Suicide Risk Score: 0 Integumentary History of Skin or Integumenta: No Blood Transfusions History of Blood Disorders: No Physical Exam Vital Signs Vital Sign - Last 12Hours 12/09/17 19:13 Temp 98.4 Pulse 70 Resp 18 B/P (MAP) 132/87 (102) Pulse Ox 99 General Appearance: WD/WN, no apparent distress, other (CONSTANT MOVMENTS OF BODY AND MOUTH) Eyes: bilateral eye normal inspection, bilateral eye PERRL, bilateral eye EOMI Mouth/Throat: No excessive drooling, No mandibular swelling, No maxillary swelling, other (EXTRACTION SITES TO RIGHT POSTERIOR LOWER GUMS WITH SLIGHT SURROUNDING ERYTHEMA AND SWELLING. NO AREAS OF FLUCTUANCE, NO BLEEDING AND NO DRAINAGE. 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, no motor/sensory deficits, alert, oriented x 3, other Skin: normal color, warm/dry Progress/Results/Core Measures Results/Orders My Orders Orders - JACY MELARA DO Ketorolac Injection (Toradol Injection) (12/09/17 19:31) Ceftriaxone Injection (Rocephin Injectio (12/09/17 19:45) Lidocaine 1% Injection (Xylocaine 1% Inj (12/09/17 19:45) Lidocaine 2% Viscous 15 Ml (Xylocaine Vi (12/09/17 19:45) Lidocaine 1% (Xylocaine 1%) (12/09/17 19:34) Medications Given in ED Current Medications Medications Dose Ordered Sig/Jumana Route Start Time Stop Time Status Last Admin Dose Admin Ceftriaxone Sodium 1,000 mg ONCE ONCE IM 12/09/17 19:45 12/09/17 19:46 DC 12/09/17 19:43 1,000 MG Lidocaine HCl 5 ml ONCE ONCE MM 12/09/17 19:45 12/09/17 19:46 DC 12/09/17 19:52 5 ML Lidocaine HCl 50 ml STK-MED ONCE .ROUTE 12/09/17 19:34 12/09/17 19:37 DC 12/09/17 19:44 50 ML Vital Signs/I&O Vital Sign - Last 12Hours 12/09/17 12/09/17 19:13 19:55 Temp 98.4 Pulse 70 78 Resp 18 20 B/P (MAP) 132/87 (102) Pulse Ox 99 98 Blood Pressure Mean: 102 Departure Impression Impression: Primary Impression: POST EXTRACTION DENTAL PAIN Disposition: 01 HOME, SELF-CARE Condition: Stable Departure-Patient Inst. Referrals: NO,LOCAL PHYSICIAN (PCP/Family) Primary Care Physician Patient Instructions: Dental Pain (DC) Add. Discharge Instructions: FOLLOW ALL INSTRUCTIONS GIVEN TO YOU BY THE DENTIST FOLLOW UP WITH YOUR DENTIST THIS WEEK FOR FURTHER CARE All discharge instructions reviewed with patient and/or family. Voiced understanding. Scripts Lidocaine HCl (Lidocaine HCl Viscous) 15 Ml Solution 15 ML MM Q 1-2 HOURS for Pain, #100 ML Prov: KELTON,JACY K DO 12/09/17 Meloxicam (Mobic) 15 Mg Tablet 15 MG PO DAILY, #10 TAB Prov: KELTON,JACY K DO 12/09/17 Clindamycin HCl (Clindamycin HCl) 300 Mg Capsule 300 MG PO QID for FOR INFECTION, #40 CAP Prov: KELTON,JACY K DO 12/09/17 KELTONRAVIA K DO Dec 09, 2017 19:35
[2017-12-09] MEDS ORDERED: cefTRIAXone 1 GM (ROCEPHIN) VIAL IM ONE (19:45)
[2017-12-09] MEDS ORDERED: LIDOCAINE 1% INJ 20 ML (XYLOCAINE) VIAL INJ ONE (19:45)
[2017-12-09] MEDS ORDERED: LIDOCAINE 2% VISCOUS 15 ML UDC MM ONE (19:45)
[2017-12-09 19:55] VITALS: BP 126/78
== END 2017-12-09 19:55 | disposition home or self-care (01) ==
LOC: EDUNIT# 17:39 → ER 17:40
DX: G89.18 Other acute postprocedural pain (principal); K08.89 Other specified disorders of teeth and supporting structures; J45.909 Unspecified asthma, uncomplicated; F17.210 Nicotine dependence, cigarettes, uncomplicated; Z98.890 Other specified postprocedural states
CPT/HCPCS: 96372; 99284

== ENCOUNTER 2018-01-11 16:36 | Emergency (ER) | payer MEDICAID ==
[~2018-01-11] VITALS: Ht 167.6 cm; Wt 54.4 kg
[~2018-01-11 16:36] MED LIST changes: +CLIN300C11 PO; +LIDO15SO2 MM; +MELO15TA14 PO
--- NOTE | 2018-01-11 17:02 | ED EENT ---
History of Present Illness General Chief Complaint: Dental Problems/Pain Stated Complaint: BROKE TOOTH Nursing Triage Note: AMB TO ROOM REPORTS LAST NIGHT WAS EATNG CHICKEN FRIED STEAK AND NEVIN TOOTH. IS TO HAVE TEETH REMOVE ON JAN 20 Source: patient Exam Limitations: no limitations History of Present Illness Date Seen by Provider: Jan 11, 2018 Time Seen by Provider: 17:02 Initial Comments 22-year-old male patient presents to the emergency Department with reports of eating chicken fried steak last night and breaking a left lower tooth. Now complains of constant pain. Worse today. Patient is scheduled to have the rest of his teeth removed on January 20 in [place].. Location Injury Occurred: home Timing/Duration: abrupt Location: dental Prearrival Treatment: no prearrival treatment Allergies and Home Medications Allergies Coded Allergies: No Known Drug Allergies (Unverified , 12/03/16) Home Medications Amoxicillin 500 Mg Capsule, 500 MG PO TID, #21 Ref 0 Prescribed by: NOEMY GOMEZ on 01/11/181715 Clindamycin HCl 300 Mg Capsule, 300 MG PO QID, #40 Prescribed by: JACY MELARA on 12/09/17 193 Hydrocodone Bit/Acetaminophen 1 Tab Tab, 1 TAB PO Q4H, (Reported) Lidocaine HCl 15 Ml Solution, 15 ML MM Q 1-2 HOURS, #100 Prescribed by: JACY MELARA on 12/09/171933 Lidocaine HCl 15 Ml Solution, 15 ML MM UD PRN for PAIN-MILD TO MODERATE, #1 Ref 0 15 ml swish and spit q2-4h prn dental pain Prescribed by: NOEMY GOMEZ on 01/11/181715 Meloxicam 15 Mg Tablet, 15 MG PO DAILY, #10 Prescribed by: JACY MELARA on 12/09/171933 Meloxicam 15 Mg Tablet, 15 MG PO DAILY PRN for pain, #20 Ref 0 Prescribed by: NOEMY GOMEZ on 01/11/181715 Review of Systems Constitutional: no symptoms reported Eyes: No Symptoms Reported Ears: No Symptoms Reported Nose: no symptoms reported Mouth: see HPI, pain, denies swelling Throat: no symptoms reported Respiratory: no symptoms reported Cardiovascular: no symptoms reported Gastrointestinal: no symptoms reported Neurological: No Symptoms Reported All Other Systems Reviewed Negative Unless Noted: Yes (Negative excepted noted.) Past Yavncox-Wubggu-Sfxvex Hx Patient Social History Alcohol Use: Occasionally Uses Number of Drinks Today: CC Alcohol Beverage of Choice: Cheap Liquor Recreational Drug Use: No Type Used: Cigarettes 2nd Hand Smoke Exposure: No Recent Foreign Travel: No Contact w/Someone Who Travel: No Recent Infectious Disease Expo: No Recent Hopitalizations: No Immunizations Up To Date Tetanus Booster (TDap): Unknown Seasonal Allergies Seasonal Allergies: Yes Surgeries History of Surgeries: Yes (TUBES IN EARS, DENTAL EXTRACTIONSl) Surgeries: Ear Surgery Respiratory History of Respiratory Disorde: Yes Respiratory Disorders: Asthma Cardiovascular History of Cardiac Disorders: No Neurological History of Neurological Disord: No Reproductive System Hx Reproductive Disorders: No Genitourinary History of Genitourinary Disor: No Gastrointestinal History of Gastrointestinal Di: No Musculoskeletal History of Musculoskeletal Dis: No Endocrine History of Endocrine Disorders: No HEENT History of HEENT Disorders: No Cancer History of Cancer: No Psychosocial History 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) Integumentary History of Skin or Integumenta: No Blood Transfusions History of Blood Disorders: No Reviewed Nursing Assessment Reviewed/Agree w Nursing PMH: Yes Family Medical History Significant Family History: No Pertinent Family Hx Physical Exam Vital Signs Vital Signs - First Documented 01/11/18 16:41 Temp 98.3 Pulse 82 Resp 18 B/P (MAP) 128/79 (95) Pulse Ox 98 O2 Delivery Room Air General Appearance: WD/WN, no apparent distress Eyes: bilateral eye normal inspection, bilateral eye PERRL, bilateral eye EOMI Ears: bilateral ear auricle normal Nose: normal inspection Mouth/Throat: pharynx normal, No dental tenderness (unable to reproduce dental tenderness to palpation.), No excessive drooling, No mandibular swelling, No maxillary swelling, other (lower molars all broken below the gum line with sharp edges and extensive cavities. very mild swelling noted around the left lower posterior teeth (see images)) Neck: non-tender, full range of motion, supple, normal inspection Cardiovascular: regular rate, rhythm, no murmur Respiratory: lungs clear, normal breath sounds, no respiratory distress, no accessory muscle use Neurologic/Psychiatric: alert, normal mood/affect, oriented x 3 Skin: normal color, warm/dry Progress/Results/Core Measures Results/Orders Vital Signs/I&O Vital Sign - Last 12Hours 01/11/18 16:41 Temp 98.3 Pulse 82 Resp 18 B/P (MAP) 128/79 (95) Pulse Ox 98 O2 Delivery Room Air Blood Pressure Mean: 95 Departure Impression Impression: Primary Impression: Fractured tooth Additional Impression: Dental caries Disposition: HOME, SELF-CARE Condition: Improved Departure-Patient Inst. Decision time for Depature: 17:11 Referrals: NO,LOCAL PHYSICIAN (PCP/Family) Primary Care Physician Patient Instructions: Fractured Tooth (DC), Tooth Decay, Adult (DC) Add. Discharge Instructions: All discharge instructions reviewed with patient and/or family. Voiced understanding. Medications as instructed. Tylenol Extra Strength over-the- counter as directed for pain. You may use ice packs and heating pads as needed for pain. Soft diet. Follow-up with your dentist as an outpatient for recheck and for dental repair/extraction. Follow-up with your family practitioner for recheck if needed. Return in the emergency department for worsened symptoms or any other concerns. Scripts Meloxicam (Mobic) 15 Mg Tablet 15 MG PO DAILY Y for pain, #20 TAB 0 Refills Prov: NOEMY GOMEZ 01/11/18 Lidocaine HCl (Lidocaine HCl Viscous) 15 Ml Solution 15 ML MM UD Y for PAIN-MILD TO MODERATE, #1 EA 0 Refills 15 ml swish and spit q2-4h prn dental pain Prov: NOEMY GOMEZ 01/11/18 Amoxicillin (Amoxicillin) 500 Mg Capsule 500 MG PO TID, #21 CAP 0 Refills Prov: NOEMY GOMEZ 01/11/18 Work/School Note: Local Medical Staff Listing Images Mouth/Nose 1 - Caries, Fracture Tooth, Swelling (very mild swelling of the gums) NOEMY GOMEZ Jan 11, 2018 17:02
[2018-01-11] MEDS ORDERED: MELO15TA14 PO (17:16)
[2018-01-11] MEDS ORDERED: AMOX500C2 PO (17:16)
[2018-01-11] MEDS ORDERED: LIDO15SO2 MM (17:16)
[2018-01-11 17:22] VITALS: BP 128/79
== END 2018-01-11 17:22 | disposition home or self-care (01) ==
LOC: EDUNIT# 16:36 → ER 16:38
DX: K02.9 Dental caries, unspecified (principal); K08.89 Other specified disorders of teeth and supporting structures; J45.909 Unspecified asthma, uncomplicated; Z96.22 Myringotomy tube(s) status
CPT/HCPCS: 99282

== ENCOUNTER 2018-01-14 22:01 | Emergency (ER) | payer MEDICAID ==
[~2018-01-14] VITALS: Ht 167.6 cm; Wt 59.0 kg
[2018-01-14] MEDS ORDERED: LIDOCAINE 2% VISCOUS 15 ML UDC PO ONE (22:30)
[2018-01-14] MEDS ORDERED: TRAM-42 PO (22:31)
--- NOTE | 2018-01-14 22:31 | ED EENT ---
History of Present Illness General Chief Complaint: Dental Problems/Pain Stated Complaint: UPPER LEFT SIDE TOOTH PAIN Nursing Triage Note: PT C/O L UPPER BACK TOOTH PAIN. Source: patient, old records Exam Limitations: no limitations History of Present Illness Date Seen by Provider: Jan 14, 2018 Time Seen by Provider: 22:05 Initial Comments This 22-year-old young man presents to the emergency room with dental pain in the left upper mouth. He has severe dental decay and is scheduled to have complete dental extractions on January 22. He is presently on amoxicillin. He has been trying meloxicam and ibuprofen for pain. He has only been taking 400 mg of ibuprofen once a day. He also drinks alcohol to help with the pain. There is no overt abscess and he is afebrile. Allergies and Home Medications Allergies Coded Allergies: No Known Drug Allergies (Unverified , 12/03/16) Home Medications Amoxicillin 500 Mg Capsule, 500 MG PO TID, #21 Ref 0 Prescribed by: NOEMY GOMEZ on 01/11/181715 Clindamycin HCl 300 Mg Capsule, 300 MG PO QID, #40 Prescribed by: JACY MELARA on 12/09/17 193 Hydrocodone Bit/Acetaminophen 1 Tab Tab, 1 TAB PO Q4H, (Reported) Lidocaine HCl 15 Ml Solution, 15 ML MM Q 1-2 HOURS, #100 Prescribed by: JACY MELARA on 12/09/171933 Lidocaine HCl 15 Ml Solution, 15 ML MM UD PRN for PAIN-MILD TO MODERATE, #1 Ref 0 15 ml swish and spit q2-4h prn dental pain Prescribed by: NOEMY GOMEZ on 01/11/18 171 Meloxicam 15 Mg Tablet, 15 MG PO DAILY, #10 Prescribed by: JACY MELARA on 12/09/17 193 Meloxicam 15 Mg Tablet, 15 MG PO DAILY PRN for pain, #20 Ref 0 Prescribed by: NOEMY GOMEZ on 01/11/18 171 Tramadol HCl 50 Mg Tablet, 50 MG PO Q6H PRN for PAIN-MODERATE TO SEVERE, #15 Prescribed by: ARVIN GAVIN on 01/14/181 Review of Systems Constitutional: no symptoms reported Eyes: No Symptoms Reported Ears: No Symptoms Reported Nose: no symptoms reported Mouth: see HPI Throat: no symptoms reported Respiratory: no symptoms reported Cardiovascular: no symptoms reported Gastrointestinal: no symptoms reported Musculoskeletal: no symptoms reported Skin: no symptoms reported Neurological: No Symptoms Reported Past Jtclmji-Qfuwwl-Ustnpl Hx Patient Social History Alcohol Use: Occasionally Uses Number of Drinks Today: CC Alcohol Beverage of Choice: Cheap Liquor Recreational Drug Use: No Smoking Status: Never a Smoker Type Used: Cigarettes 2nd Hand Smoke Exposure: No Recent Foreign Travel: No Contact w/Someone Who Travel: No Recent Infectious Disease Expo: No Recent Hopitalizations: No Immunizations Up To Date Tetanus Booster (TDap): Unknown Seasonal Allergies Seasonal Allergies: Yes Surgeries History of Surgeries: Yes (TUBES IN EARS, DENTAL EXTRACTIONSl) Surgeries: Ear Surgery Respiratory History of Respiratory Disorde: Yes Respiratory Disorders: Asthma Cardiovascular History of Cardiac Disorders: No Neurological History of Neurological Disord: No Reproductive System Hx Reproductive Disorders: No Genitourinary History of Genitourinary Disor: No Gastrointestinal History of Gastrointestinal Di: No Musculoskeletal History of Musculoskeletal Dis: No Endocrine History of Endocrine Disorders: No HEENT History of HEENT Disorders: Yes (severe dental decay) Cancer History of Cancer: No Psychosocial History 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) Integumentary History of Skin or Integumenta: No Blood Transfusions History of Blood Disorders: No Family Medical History Significant Family History: No Pertinent Family Hx Physical Exam Vital Signs Vital Signs - First Documented 01/14/18 22:09 Temp 96.4 Pulse 95 Resp 16 B/P (MAP) 120/68 (85) Pulse Ox 97 O2 Delivery Room Air General Appearance: WD/WN, no apparent distress Eyes: bilateral eye normal inspection, bilateral eye PERRL, bilateral eye EOMI Ears: bilateral ear auricle normal, bilateral ear canal normal, bilateral ear TM normal Nose: normal inspection Mouth/Throat: pharynx normal, other (severe dental decay with numerous fractured teeth. No overt abscess. Tenderness over fractured tooth in the left upper mouth) Neck: supple, normal inspection, No lymphadenopathy (R), No lymphadenopathy (L) Cardiovascular: regular rate, rhythm, no edema Respiratory: lungs clear, normal breath sounds, no respiratory distress, no accessory muscle use Neurologic/Psychiatric: finance officer II-XII nml as tested, no motor/sensory deficits, alert, normal mood/affect, oriented x 3 Skin: normal color, warm/dry Progress/Results/Core Measures Results/Orders My Orders Orders - ARVIN ULLOA MD Lidocaine 2% Viscous 15 Ml (Xylocaine Vi (01/14/18 22:30) Vital Signs/I&O Vital Sign - Last 12Hours 01/14/18 22:09 Temp 96.4 Pulse 95 Resp 16 B/P (MAP) 120/68 (85) Pulse Ox 97 O2 Delivery Room Air Blood Pressure Mean: 85 Progress Note : Progress Note Anesthetic gauze pads were prepared for the patient and dispensed. We discussed best approaches to pain management. A short supply of tramadol as prescribed for breakthrough pain. Departure Impression Impression: Primary Impression: Pain, dental Additional Impression: Dental decay Disposition: HOME, SELF-CARE Condition: Improved Departure-Patient Inst. Decision time for Depature: 22:28 Referrals: NO,LOCAL PHYSICIAN (PCP/Family) Primary Care Physician Patient Instructions: Dental Pain (DC) Add. Discharge Instructions: Discontinue meloxicam. Instead, take ibuprofen up to 600 mg every 6 hours as needed for primary pain control. Add Tylenol (acetaminophen) up to 1000 mg every 6 hours as needed for additional pain control. For pain not controlled well enough by ibuprofen and Tylenol, you may add Ultram as prescribed. For topical pain management you can apply the gauze pads over the affected teeth. Eat and drink very carefully after using anesthetic gauze pads as they may numb your lips, tongue, and throat. DO NOT FALL ASLEEP WITH GAUZE PADS IN YOUR MOUTH. Continue with your antibiotics as previously prescribed. Avoid excessive use of alcohol. All discharge instructions reviewed with patient and/or family. Voiced understanding. Scripts Tramadol HCl (Ultram) 50 Mg Tablet 50 MG PO Q6H Y for PAIN-MODERATE TO SEVERE, #15 TAB Prov: ARVIN ULLOA MD 01/14/18 ARVIN ULLOA MD Jan 14, 2018 22:31
[2018-01-14 22:35] VITALS: BP 120/68
== END 2018-01-14 22:35 | disposition home or self-care (01) ==
LOC: EDUNIT# 22:01 → ER 22:03
DX: K02.9 Dental caries, unspecified (principal); J45.909 Unspecified asthma, uncomplicated; F84.0 Autistic disorder
CPT/HCPCS: 99282

== ENCOUNTER 2018-01-22 13:14 | Emergency (ER) | payer MEDICAID ==
[~2018-01-22] VITALS: Ht 167.6 cm; Wt 54.4 kg
[2018-01-22] MEDS ORDERED: NAPR-1071 PO (14:07)
--- NOTE | 2018-01-22 14:07 | ED EENT ---
History of Present Illness General Chief Complaint: Dental Problems/Pain Stated Complaint: DENTAL PAIN Nursing Triage Note: pt reports had dental extractions saturday and had all his teeth removed. pt states he has been taking 2 hydrocodone 5/325 every 4 hours instead of the prescribed 1 hydrocodone 5/325 every 4-6 hrs and has run out of pain medicine. pt reports he has not contacted the dentist that did the sx. pt reports he is taking his antibiotics as prescribed. Source: patient Exam Limitations: no limitations History of Present Illness Date Seen by Provider: Jan 22, 2018 Time Seen by Provider: 14:04 Initial Comments To ER with reports of diffuse dental pain. He had all of his teeth removed on Saturday 01/20. He is on clindamycin. He was given a four-day supply of hydrocodone and he is already out of that. This weakness fifth visit to the emergency room this year for dental pain Timing/Duration: abrupt Severity: moderate Location: dental Allergies and Home Medications Allergies Coded Allergies: No Known Drug Allergies (Unverified , 12/03/16) Home Medications Amoxicillin 500 Mg Capsule, 500 MG PO TID, #21 Ref 0 Prescribed by: NOEMY GOMEZ on 01/11/181715 Clindamycin HCl 300 Mg Capsule, 300 MG PO QID, #40 Prescribed by: JACY MELARA on 12/09/17 193 Hydrocodone Bit/Acetaminophen 1 Tab Tab, 1 TAB PO Q4H, (Reported) Lidocaine HCl 15 Ml Solution, 15 ML MM Q 1-2 HOURS, #100 Prescribed by: JACY MELARA on 12/09/171933 Lidocaine HCl 15 Ml Solution, 15 ML MM UD PRN for PAIN-MILD TO MODERATE, #1 Ref 0 15 ml swish and spit q2-4h prn dental pain Prescribed by: NOEMY GOMEZ on 01/11/18 1716 Meloxicam 15 Mg Tablet, 15 MG PO DAILY, #10 Prescribed by: JACY MELARA on 12/09/17 193 Meloxicam 15 Mg Tablet, 15 MG PO DAILY PRN for pain, #20 Ref 0 Prescribed by: NOEMY GOMEZ on 01/11/181715 Tramadol HCl 50 Mg Tablet, 50 MG PO Q6H PRN for PAIN-MODERATE TO SEVERE, #15 Prescribed by: ARVIN GAVIN on 01/14/181 Review of Systems Constitutional: see HPI Eyes: No Symptoms Reported Ears: No Symptoms Reported Nose: no symptoms reported Mouth: see HPI Throat: no symptoms reported Respiratory: no symptoms reported Cardiovascular: no symptoms reported Musculoskeletal: no symptoms reported Past Ggwfmej-Hdflrx-Afwluz Hx Patient Social History Alcohol Use: Denies Use Number of Drinks Today: CC Alcohol Beverage of Choice: Cheap Liquor Recreational Drug Use: No Smoking Status: Current Everyday Smoker Type Used: Cigarettes 2nd Hand Smoke Exposure: No Recent Foreign Travel: No Contact w/Someone Who Travel: No Recent Infectious Disease Expo: No Recent Hopitalizations: No Immunizations Up To Date Tetanus Booster (TDap): Unknown Seasonal Allergies Seasonal Allergies: Yes Surgeries History of Surgeries: Yes (TUBES IN EARS, DENTAL EXTRACTIONSl) Surgeries: Ear Surgery Respiratory History of Respiratory Disorde: Yes Respiratory Disorders: Asthma Cardiovascular History of Cardiac Disorders: No Neurological History of Neurological Disord: No Reproductive System Hx Reproductive Disorders: No Genitourinary History of Genitourinary Disor: No Gastrointestinal History of Gastrointestinal Di: No Musculoskeletal History of Musculoskeletal Dis: No Endocrine History of Endocrine Disorders: No HEENT History of HEENT Disorders: Yes (severe dental decay) Cancer History of Cancer: No Psychosocial History 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) Integumentary History of Skin or Integumenta: No Blood Transfusions History of Blood Disorders: No Family Medical History Significant Family History: No Pertinent Family Hx Physical Exam Vital Signs Vital Signs - First Documented 01/22/18 13:36 Temp 98.0 Pulse 75 Resp 20 B/P (MAP) 121/91 (101) Pulse Ox 100 General Appearance: WD/WN, no apparent distress Eyes: bilateral eye normal inspection, bilateral eye PERRL, bilateral eye EOMI Ears: bilateral ear auricle normal, bilateral ear canal normal, bilateral ear TM normal Mouth/Throat: other (all T had in fact been removed, there is no fluctuance or swelling to suggest abscess.) Neck: non-tender, full range of motion Respiratory: no respiratory distress, no accessory muscle use Gastrointestinal: normal bowel sounds, non tender Neurologic/Psychiatric: alert, normal mood/affect, oriented x 3 Skin: normal color, warm/dry Progress/Results/Core Measures Results/Orders Vital Signs/I&O Vital Sign - Last 12Hours 01/22/18 13:36 Temp 98.0 Pulse 75 Resp 20 B/P (MAP) 121/91 (101) Pulse Ox 100 Blood Pressure Mean: 101 Departure Impression Impression: Primary Impression: Pain, dental Disposition: 01 HOME, SELF-CARE Condition: Stable Departure-Patient Inst. Decision time for Depature: 14:05 Referrals: NO,LOCAL PHYSICIAN (PCP/Family) Primary Care Physician Patient Instructions: Dental Pain (DC) Add. Discharge Instructions: 1. Medication as directed 2. Return to ER for any concerns All discharge instructions reviewed with patient and/or family. Voiced understanding. Scripts Naproxen (Naprosyn) 500 Mg Tablet 500 MG PO BID, #30 TAB Prov: HARI DIXON APRN 01/22/18 HARI DIXON APRN Jan 22, 2018 14:07
[2018-01-22] MEDS ORDERED: LIDOCAINE 2% VISCOUS 15 ML UDC PO ONE (14:15)
[2018-01-22 14:19] VITALS: BP 127/71
== END 2018-01-22 14:19 | disposition home or self-care (01) ==
LOC: EDUNIT# 13:14 → ER 13:16
DX: K08.89 Other specified disorders of teeth and supporting structures (principal); J45.909 Unspecified asthma, uncomplicated; F84.0 Autistic disorder; F17.210 Nicotine dependence, cigarettes, uncomplicated
CPT/HCPCS: 99283

== ENCOUNTER 2019-03-05 20:53 | Emergency (ER) | payer SELFPAY ==
[~2019-03-05] VITALS: Ht 167.6 cm; Wt 54.4 kg
[~2019-03-05 20:53] MED LIST changes: +NAPR-1071 PO
[2019-03-05] MEDS ORDERED: AMOXICILLIN 500 MG (POLYMOX) CAP PO STA (21:04)
[2019-03-05] MEDS ORDERED: PRD20T PO (21:09)
[2019-03-05] MEDS ORDERED: AMOX500C2 PO (21:09)
--- NOTE | 2019-03-05 21:09 | ED EENT ---
History of Present Illness General Stated Complaint: SORE THROAT Source: patient Exam Limitations: no limitations History of Present Illness Date Seen by Provider: Mar 05, 2019 Time Seen by Provider: 21:06 Initial Comments To ER with a sore throat. States that this is been present for about 3 days., No fever. was diagnosed with strep throat earlier this week. Timing/Duration: other Severity: moderate Prearrival Treatment: no prearrival treatment Associated Symptoms: denies symptoms Allergies and Home Medications Allergies Coded Allergies: No Known Drug Allergies (Unverified , 12/03/16) Home Medications Amoxicillin 500 Mg Capsule, 500 MG PO TID Prescribed by: NOEMY GOMEZ on 01/11/181715 Clindamycin HCl 300 Mg Capsule, 300 MG PO QID Prescribed by: JACY MELARA on 12/09/17 193 Hydrocodone Bit/Acetaminophen 1 Tab Tab, 1 TAB PO Q4H, (Reported) Lidocaine HCl 15 Ml Solution, 15 ML MM Q 1-2 HOURS Prescribed by: JACY MELARA on 12/09/171933 Lidocaine HCl 15 Ml Solution, 15 ML MM UD PRN for PAIN-MILD TO MODERATE 15 ml swish and spit q2-4h prn dental pain Prescribed by: NOEMY GOMEZ on 01/11/181715 Meloxicam 15 Mg Tablet, 15 MG PO DAILY Prescribed by: JACY MELARA on 12/09/171933 Meloxicam 15 Mg Tablet, 15 MG PO DAILY PRN for pain Prescribed by: NOEMY GOMEZ on 01/11/181715 Naproxen 500 Mg Tablet, 500 MG PO BID Prescribed by: HARI DIXON on 01/22/18 1407 Tramadol HCl 50 Mg Tablet, 50 MG PO Q6H PRN for PAIN-MODERATE TO SEVERE Prescribed by: ARVIN GAVIN on 01/14/181 Patient Home Medication List Home Medication List Reviewed: Yes Review of Systems Review of Systems Constitutional: see HPI Eyes: No Symptoms Reported Ears: No Symptoms Reported Nose: no symptoms reported Mouth: see HPI, pain Throat: no symptoms reported Respiratory: no symptoms reported Cardiovascular: no symptoms reported Musculoskeletal: no symptoms reported Skin: no symptoms reported Neurological: No Symptoms Reported Hematologic/Lymphatic: No Symptoms Reported Immunological/Allergic: no symptoms reported Past Kvouiwr-Zjhmbk-Wfznry Hx Patient Social History Alcohol Beverage of Choice: Cheap Liquor Type Used: Cigarettes 2nd Hand Smoke Exposure: No Recent Foreign Travel: No Contact w/Someone Who Travel: No Recent Hopitalizations: No Immunizations Up To Date Tetanus Booster (TDap): Unknown Seasonal Allergies Seasonal Allergies: Yes Past Medical History Surgeries: Yes (TUBES IN EARS, DENTAL EXTRACTIONSl) Ear Surgery Respiratory: Yes Asthma Cardiac: No Neurological: No Reproductive Disorders: No Genitourinary: No Gastrointestinal: No Musculoskeletal: No Endocrine: No HEENT: Yes (severe dental decay) Cancer: No Psychosocial: 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 oz. 54.438115ts; BMI Method:Stated General Appearance: WD/WN, no apparent distress Eyes: bilateral eye normal inspection, bilateral eye PERRL, bilateral eye EOMI Ears: bilateral ear auricle normal, bilateral ear canal normal, bilateral ear TM normal Nose: normal inspection Mouth/Throat: tonsillar swelling; No trismus, No uvula swelling; other ( pharyngeal erythema) Neck: No lymphadenopathy (R), No lymphadenopathy (L) Respiratory: no respiratory distress, no accessory muscle use Gastrointestinal: normal bowel sounds, non tender Neurologic/Psychiatric: alert, normal mood/affect, oriented x 3 Skin: normal color, warm/dry Progress/Results/Core Measures Results/Orders My Orders Orders - HARI DIXON APRN Rapid Strep A Screen (03/05/19 21:04) Prednisone Tablet (Deltasone Tablet) (03/05/19 21:15) Amoxicillin Capsule (Polymox Capsule) (03/05/19 21:04) Departure Impression Primary Impression: Sore throat Disposition: HOME, SELF-CARE Condition: Stable Departure-Patient Inst. Decision time for Depature: 21:08 Referrals: NO,LOCAL PHYSICIAN (PCP/Family) Primary Care Physician Patient Instructions: Sore Throat in Adults Add. Discharge Instructions: 1. Tylenol and motrin for sore throat. Followup with your doctor next week. Scripts Prednisone (Prednisone) 20 Mg Tab 40 MG PO DAILY, #4 TAB Prov: HARI DIXON APRN 03/05/19 Amoxicillin (Amoxicillin) 500 Mg Capsule 500 MG PO TID, #15 CAP Prov: HARI DIXON APRN 03/05/19 Work/School Note: Work Release Form Date Seen in the Emergency Department: Mar 05, 2019 Return to Work: Mar 07, 2019 HARI DIXON APRN Mar 05, 2019 21:09
[2019-03-05] MEDS ORDERED: predniSONE 20 MG TAB PO ONE (21:15)
[2019-03-05 21:32] VITALS: BP 110/70
== END 2019-03-05 21:30 | disposition home or self-care (01) ==
LOC: EDUNIT# 20:53 → ER 20:54
DX: J02.9 Acute pharyngitis, unspecified (principal); F84.0 Autistic disorder; J45.909 Unspecified asthma, uncomplicated; Z96.22 Myringotomy tube(s) status
CPT/HCPCS: 87430; 99284